=== PATIENT | female | born 1965 | race Caucasian/White ===

== ENCOUNTER → 2017-11-27 | Outpatient (CLI) | payer BC ==
--- NOTE | 2017-11-27 11:02 | CPEKG ---
Heart Rate: 68 RR Interval: 882 P-R Interval: 152 QRSD Interval: 92 QT Interval: 424 QTC Interval: 451 P [place]: 22 QRS [place]: -6 T Wave [place]: 32 EKG Severity - ABNORMAL ECG - EKG Impression: SINUS RHYTHM EKG Impression: PROBABLE ANTEROSEPTAL INFARCT, OLD Electronically Signed By: Romain Kelly 27-Nov-2017 12:40:10
== END ==
LOC: FCP 10:42
PROVIDERS: ATTEND Family Medicine
DX: R07.89 Other chest pain (principal); R94.31 Abnormal electrocardiogram [ECG] [EKG]